=== PATIENT | female | born 1955 | race Caucasian/White ===

== ENCOUNTER 2022-10-27 19:12 | Emergency (ER) | payer BC, SELFPAY ==
[2022-10-27 19:12] VITALS: BP 118/92; PULSE 67; RESP 22; TEMP 36.4; O2SAT 100
[2022-10-27] MEDS: fentaNYL 100 MCG/2 ML VIAL 50 MCG IVP (19:43)
--- NOTE | 2022-10-27 19:45 | DI.RAD_ITS ---
Exam(s) XR SHOULDER LT COMPLETE 2+V EXAM: XR SHOULDER LT COMPLETE 2+V CLINICAL HISTORY: Trauma, proximal shoulder/humerus pain. TECHNIQUE: 2D digital imaging was performed. Three views. COMPARISON: No exams were available for comparison FINDINGS: BONES: There is a fracture at the surgical neck of the humerus tissue shows marked displacement as we ll as angulation. There are a few small comminuted fragments. No bony destructive lesion is seen. JOINTS: No dislocation present. SOFT TISSUE: Swelling around proximal humerus. IMPRESSION: Comminuted displaced fracture of the proximal humerus. DATA REPOSITORY: RADIATION DOSE DELIVERED:
--- NOTE | 2022-10-27 20:42 | DI.VRAD_ITS ---
PROCEDURE INFORMATION: Exam: XR Left Shoulder Exam date and time: 10/27/2022 8:05 PM Age: 67 years old Clinical indication: Injury or trauma; Fall; Other: Trauma, proximal shoulder/humerus pain TECHNIQUE: Imaging protocol: Radiologic exam of the left shoulder. Views: 2 or more views. COMPARISON: No relevant prior studies available. FINDINGS: Bones/joints: Mildly comminuted and impacted fracture of the proximal humerus/humeral head. There is no dislocation of the glenohumeral joint Soft tissues: Mild swelling noted IMPRESSION: Proximal left humeral/humeral head fracture as noted Dictated and Authenticated by: Sg Demarco MD. Ordering:MITESH Painter MD
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
[2022-10-27 22:01] VITALS: BP 112/65; PULSE 53; RESP 18; O2SAT 96
== END 2022-10-27 22:01 | disposition home or self-care (01) ==
PROVIDERS: Emergency Provider Nurse Practitioner Family
DX: S42.202A Unspecified fracture of upper end of left humerus, initial encounter for closed fracture (principal); V19.3XXA Pedal cyclist (driver) (passenger) injured in unspecified nontraffic accident, initial encounter
CPT/HCPCS: 29240; 96374; 99284; 73030; J3010

== ENCOUNTER 2022-11-04 09:23 | Day surgery (SDC) | payer BC, SELFPAY ==
[2022-11-04] VITALS (14 sets, daily range): BP systolic 104–150; BP diastolic 62–92; PULSE 62–79; RESP 12–20; TEMP 36–37; O2SAT 97–100; BMI 23.0
--- NOTE | 2022-11-04 07:15 | W.PM.DSUDISC ---
Date of service: 11/04/22 Time of Service: 16:00 Discharge Plan Disposition Patient Disposition: Home Condition: Stable Discharge Details Attending Provider: Rodney Medina Primary Care Provider: None,None Home Meds and New Rx's Prescriptions: New aspirin 81 mg tablet,delayed release (DR/EC) 81 mg PO DAILY 7 Days Qty: 7 0RF naproxen 250 mg tablet 250 - 500 mg PO BID PRNQty: 40 0RF Rx Instructions: take with a meal oxycodone 5 mg tablet 5 - 10 mg PO Q4H MDD 30 mg PRN (Reason: moderate to severe pain) Qty: 18 0RF Continued acetaminophen [Tylenol] 325 mg capsule 325 mg PO ONCE PRN Discontinued ibuprofen 200 mg Tablet 600 mg PO DIRECTED PRN Discharge Instructions Additional Instructions: Surgery: Left proximal humerus ORIF Activity: For 3 weeks, you should keep your arm at your side in a relatively neutral position. Do not try to lift or raise your arm using your own muscles. You should use the sling whenever you are out of the house. You may have to adjust it for comfort. At home it is best to remove the sling and rest the arm on a pillow at your side or support the operative side with your other hand. You may allow the arm to dangle at your side. Perform daily range of motion about the elbow, wrist, hand, and fingers to increase circulation and prevent stiffness. Start gentle pendulums and passive range of motion after 3 weeks postop. A physical therapy prescription will be sent to start in about 3-4 weeks. Prescriptions: Aspirin 81 mg take 1 daily to prevent a blood clot for 7 days Naproxen 250 mg take 1-2 every 12 hours with a meal as needed for moderate pain Oxycodone 5 mg take 1-2 every 4-6 hours as needed for severe pain You may use [id number] Tylenol (acetaminophen) as needed for mild pain. These pain medications may be taken all at once or in different combinations as needed. Also, recommend Colace (docusate) as a stool softener as surgery and pain medicine cause constipation. You may try [id number] diphenhydramine (Benadryl) 25-50 mg nightly as a sleep aid Dressings: Keep bandage clean, dry, and, intact. No shower please. Follow-up: 10-14 days with an orthopedic physician research assistant professor. Follow-up [address] Medina. You may take off the leg compression stockings this evening at home. You may also leave them on a few days longer if you have a history of leg swelling or edema. Let us know right away if you develop any redness, drainage, fevers, chest pain, or trouble breathing. Do not drink alcohol or drive for at least 24 hours after anesthesia. Please call the office during business hours with any questions or concerns. Discharge Orders Discharge Orders: Discharge Order (Routine); Ordered 11/04/22 Ordered By: Rodney Medina DS: Diagnosis Discharge Diagnosis (1) Closed fracture of left proximal humerus: Status: Acute
--- NOTE | 2022-11-04 07:17 | ROE_ITS ---
Date of service: 11/04/22 Time of Service: 14:30 Operative Note Operative Note DATE OF PROCEDURE: 11/04/22 PRE-OP DIAGNOSIS: Displaced left proximal humerus fracture POST-OP DIAGNOSIS: same PROCEDURE: Left proximal humerus ORIF, CPT #36251 SURGEON: Rodney Medina COMPLIANCE VICE PRESIDENT: Lou Anderson ANESTHESIA TYPE: Local By Surgeon and General LMA/ETT Refer to Anesthesia Record ESTIMATED BLOOD LOSS: 150 COMPLICATIONS: None Patient was transported to: PACU Patient's condition: stable Implants: Arthrex proximal humerus plate with 4.0 proximal locking screws, 3.5 mm cortex and locking screws distally. Indications: Please see complete medical record for details. Procedure Description: In the operating room, general anesthesia was induced. The patient was positioned semi-recumbent on the beach chair all bony prominences were well- padded. Preoperative antibiotics were administered. The left shoulder was prepped and draped in the usual sterile fashion. The correct patient, procedure, and side of the procedure were all verified prior to incision. The deltopectoral interval was preinjected with 0.25% bupivacaine containing epinephrine. The cephalic vein was mobilized laterally, deeply hemorrhagic bursa exposed and debrided, the biceps identified in the usual location above the pectoralis major tendon and between the lesser and greater tuberosities. Suture tape horizontal stitches were used to secure the subscapularis about the lesser tuberosity, supraspinatus about the greater tuberosity, and infraspinatus more posteriorly. Arm positioning, retractors, and appropriate traction and mobilization on the humeral head through the rotator cuff sutures achieved good reduction. The humeral head was provisionally pinned taking care to ensure no varus to the glenoid centrally with a 2.0 mm K wire. The shaft reduction to the head was then slightly improved with arm rotation and smooth Hohmann elevator. An Arthrex alpha plate was then attempted, fit about the greater tuberosity, positioned appropriately just lateral to the bicipital groove. This plate had a novel curve that avoided the biceps insertion distally. The plate was positioned as best possible given its curvature and patient anatomy. It was secured with a K wire proximally and a cortex screw distally in the oblong hole. The plate was then slid distally to improve calcar fixation. The cortex screw was tightened. Everything looked appropriate. The proximal locking screw holes were then predrilled taking care to only drill the lateral cortex, never penetrate the subchondral bone or into the joint, and measure depth with the blunt depth obturator and subtract 4-6 mm from each screw length. The distal remaining screw holes were then filled with appropriately length bicortical locking screws. The construct was stable. The shoulder was then taken through range of motion. Unfortunately, the curvature of this plate and how it sat on the proximal cortex had directed the majority of the proximal screws into the posterior aspect of the humeral head. Although fixation was secure, the spread was not appropriate as it did not incorporate enough bone centrally or anteriorly. All the screws and this plate were removed. This plate did not want to sit along the lateral cortex and a better trajectory for proximal fixation. Care was taken to maintain reduction. Instead, a more standard proximal locking plate was applied, which sat in the more usual location after slightly elevating the deltoid insertion. The oblong hole was provisionally secured with a bicortical cortex screw in the proximal shaft. Screw trajectory appeared more appropriate into the central humeral head. Proximally, the plate appeared about a centimeter distal to the greater tuberosity and supraspinatus. Again it sat just lateral to the bicipital groove. The calcar screw trajectory was in the inferior one third of the humeral head and neck although the screw placement was slightly more proximal than ideal. The plate was adjusted slightly more distally using the oblong hole screw loosened and then retightened. In this position the plate was still somewhat proximal, could only be moved more distal with more significant soft tissue and deltoid elevation and the curvature would have caused it to sit off the bone proximally. It was left in this position as it seemed the best compromise for fixation, reduction, and patient anatomy. Similar to before, locking screws were placed. Only lateral cortex was drilled and the depth obturator was used and subtracted 4-6 mm for each screw length to avoid prominence or penetration. The remaining 2 distal proximal shaft holes were then filled with bicortical locking screws. AP and orthogonal x-rays showed excellent fracture reduction and acceptable hardware placement. Multiple orthogonal views were used to confirm no screw penetration into the joint. The tuberosities and rotator cuff were then secured to the plate bypassing each end of the horizontal mattress sutures through their corresponding locations in the anterior, superior, and posterior plate. Sliding knots used to secure tension. The construct was quite stable through range of motion. The biceps tendon was appropriately located in the bicipital groove, fractures about the lesser, groove, and greater tuberosities reduced without any sharp edges on the biceps tendon. The tendon itself did not have any overt damage so tenodesis was omitted. The wound was copiously irrigated with Betadine and then normal saline. 1 g of vancomycin powder was distributed throughout the deep and superficial layers. Appropriate hemostasis was achieved. 2-0 Monocryl was used to reapproximate the deltopectoral interval burying the cephalic vein. Subcutaneous tissue closed with 2-0 Monocryl interrupted. Skin closed with 3-0 Monocryl buried running. Skin glue applied over the incision followed by a Mepilex Band-Aid. The patient awoke from anesthesia without complication and was transferred to the recovery room in a stable condition.
--- NOTE | 2022-11-04 08:33 | ANES.PREOP_ITS ---
General Info Date of Service Date Performed: 11/04/22 Height: 5 ft 4 in Weight: 60.781 kg Body Mass Index (BMI): 23.0 Surgical Procedure: Operation Date: 11/04/22 11:55 Proposed Procedure Side Surgeon p Proximal Humerus ORIF, Possible Biceps Tenodesis Left Rodney Medina MD Meds Allergies and Home Medications Allergies Allergy/AdvReac Type Severity Reaction Status Date / Time No Known Allergies Allergy Unverified 11/03/22 11:03 Home Medication Medication Instructions Recorded acetaminophen 325 mg capsule 325 mg PO ONCE PRN 11/02/22 (Tylenol) aspirin 81 mg tablet,delayed 81 mg PO DAILY prevent blood clot 11/04/22 release 7 days #7 tabs naproxen 250 mg tablet 250 - 500 mg PO BID PRN #40 tabs 11/04/22 oxycodone 5 mg tablet 5 - 10 mg PO Q4H PRN moderate to 11/04/22 severe pain #18 tabs Current Visit Medications: Current Medications Generic Name Dose Route Start Last Admin Trade Name Freq PRN Reason Stop Dose Admin Ringer's Solution 1,000 mls @ 30 mls/hr 11/04/22 06:00 IV 12/03/22 23:59 INFUSION ANDRE Cefazolin Sodium/Dextrose 2 gm in 50 mls @ 100 mls/hr 11/04/22 06:00 Ancef Duplex IVPB 11/04/22 16:00 PREOP ANDRE Tranexamic Acid 1,000 mg/ 60 mls @ 360 mls/hr 11/04/22 06:00 Sodium Chloride IVPB 11/14/22 16:00 PREOP ANDRE Cefazolin Sodium/Dextrose 1 gm in 50 mls @ 100 mls/hr 11/04/22 15:30 Ancef Duplex IVPB 11/04/22 15:59 ONCE ONE IV Miscellaneous Supplies 1 each 11/04/22 06:00 Iv Access IV 12/03/22 23:59 DIRECTED ANDRE Lactobacillus Acidophilus/Casei 1 cap 11/04/22 12:30 L. Acidophilus, Casei, Rhamnosus Cap PO 12/04/22 16:29 DAILY ANDRE Oxycodone HCl 0 mg 11/04/22 07:14 Oxycodone 5 Mg Tab PO 12/04/22 07:13 Q3H PRN PRN Pain Sodium Chloride 0 ml 11/04/22 06:00 Normal Saline Flush 10 Ml Syr IV 12/03/22 23:59 PRN PRN Sodium Chloride 0 ml 11/04/22 06:00 Normal Saline 10 Ml Vial IJ 12/03/22 23:59 DIRECTED PRN Sterile Water 0 ml 11/04/22 06:00 Water,Injection,Sterile 10 Ml Vial IJ 12/03/22 23:59 DIRECTED PRN PFSH Active Problems Active Problems: Problem Status Onset Code Closed fracture of left proximal humerus 10/27/22 S42.202A Medical History Medical History Exercise-induced asthma Surgical History Surgical History History of tubal ligation Tobacco Smoking/Tobacco Use Status: Former Tobacco Use Alcohol Alcohol Intake: current Alcohol intake frequency: a few times a week Substance Use Substance use: Never Substance use type: does not use Vital Signs and Lab Results Vital Signs Most Recent Vital Signs in EMR: Temp Pulse Resp BP Pulse Ox 36.2 C L 67 16 120/77 99 11/04/22 09:44 11/04/22 09:44 11/04/22 09:44 11/04/22 09:44 11/04/22 09:44 Lab Results Blood Type / Crossmatch: No Data to Display Complete Blood Count: No Data to Display Complete Metabolic Panel: No Data to Display Liver Function Panel: No Data to Display Coagulation Panel: No Data to Display Cardiac Panel: No Data to Display Arterial Blood Gas: No Data to Display Venous Blood Gas: No Data to Display Pancreas Panel: No Data to Display Thyroid Panel: No Data to Display Infectious Disease: No Data to Display Blood Cultures: No Data to Display Toxicology Panel: 2 No Data to Display Anesthesia Assessment and Plan Anesthesia History Personal History: No History of Anesthesia Complications Family History: No Family History of Anesthesia Complications Exercise Tolerance Exercise Tolerance: Metabolic Equivalents>4 Cardiac & Pulmonary Exam Cardiac Exam: Normal S1/S2 Heart Sounds Pulmonary Exam: Clear Bilateral Breath Sounds Implantable Cardiac Device Does patient have a Pacemaker or an ICD?: No Airway Exam Known Difficult Airway: No Mallampati Class: 2 Mouth Opening: Normal (> 3cm) Thyromental Distance: Greater than 3 cm Neck Range of Motion: Full ROM Neck Circumference: Normal Teeth Condition: Normal Dentition ASA Classification ASA Score: ASA 2 Emergency Case?: No NPO Status NPO Status: NPO Clears >2 hours, Solids >8 hours Anesthesia Plan Resuscitation Status: Full Code Anesthesia Technique: General Anesthesia Airway Planned: Endotracheal Tube Pain Management: Surgeon and patient request nerve block Monitors Used: Standard Monitors Preoperative Comments:: 67 yo female for ORIF humeral head. Sig PMHx: exercise induced asthma (has been using her proair more often), former smoker, occ EtOH. Does have a very slight bit of numbness (no motor involvment) in the ulnar an r adial nerve areas, discussed risks with her and with Carol. Given the delayed onset of this numbness, it is thought to be related to swelling and sling use. Plan: DAWNA KING.
[2022-11-04] MEDS: Lactated Ringers 1,000 ML 30 ML IV (10:32)
[2022-11-04] MEDS: ceFAZolin 1 GM/50 ML BAG IVPB (13:40)
--- NOTE | 2022-11-04 14:10 | ANES.NERVE_ITS ---
Nerve Block Single Injection Procedure Date and Time Date Performed: 11/04/22 Procedure Start: 13:18 Location Where Procedure Performed Procedure Location: Day Surgery Unit Reason Performed: Postoperative Analgesia Requesting Provider: Rodney Medina Timeout Performed Timeout Performed: Yes Monitoring Used ECG, Blood Pressure and SpO2 Sterility Sterility: Hand Hygiene, Surgical Cap, Surgical Mask and Chlorhexidine Sedation Given During Procedure Sedation Given (Indicate Dose Given): Versed IV Dose:: 2 mg and Precedex IV Dose:: 8 mcg Patient Mental Status Patient Mental Status: Sedate with meaningful communication Nerve Block 1st Nerve Block: Laterality: Left Block Type: Interscalene Ultrasound Image Saved?: Yes Needle / Catheter Used: 100mm SonoPlex II Local Anesthetic Bolus (Indicate Dose Given): Lidocaine used for local infiltration of skin, Bupivacaine 0.5% Dose:: 10 mL and Exparel Dose:: 10 mL Additives (Indicate Dose Given): None Ultrasound: Sterile probe cover and gel used Nerve Stimulator: Supplement to Ultrasound use and No twitch or parast hesia noted < 0.5 mA Paresthesia: None Procedure Tolerated: No Complications Procedure Outcome: Successful Procedure Comment: first attempt with deltoid twitching well outside of groove, on withdrawal and redirection same thing. New site located, lidocaine placed, and needle resited. On advancement through the middle scalene and still away from the plexus still with deltoid twitch. Needle withdrawn redirected more superficial and local placed above groove. Performed By: Herve De La Fuente
--- NOTE | 2022-11-04 17:15 | DI.RAD_ITS ---
Exam(s) XR HUMERUS LT EXAM: XR HUMERUS LT CLINICAL HISTORY: FX PROXIMAL LEFT HUMERUS. TECHNIQUE: 2D and realtime digital imaging was performed. COMPARISON: CR,XR XR SHOULDER LT COMPLETE 2+V from 10/27/2022 FINDINGS: Hard copy images show placement of a fixation plate along the proximal humerus for fracture fixation. The alignment appears satisfactory. Please see procedure note for details. Fluoro time: 1.19 minutes RADIATION DOSE DELIVERED: brit Vega=4.72 mGy
--- NOTE | 2022-11-04 19:03 | W.ANESPOSTOP ---
Postoperative Evaluation Date, Time and Location Date Performed: 11/04/22 Time Performed: 19:03 Patient Location: PACU Vital Signs Most Recent Imported Vital Signs: Most Recent Vital Signs Temp Pulse Resp BP Pulse Ox 36.5 C 73 12 132/77 99 11/04/22 18:48 11/04/22 18:48 11/04/22 18:48 11/04/22 18:48 11/04/22 18:48 Pain Score Most Recent Pain Score: Most Recent Pain Score Pain Level 0 11/04/22 18:48 Assessment Mental Status: Awake (Alert & Oriented to Patient Baseline) Airway and Respiratory Function: Patent airway with normal (patient baseline) respiratory exam Cardiovascular Function: Hemodynamically Stable Hydration Status: Adequately Hydrated Nausea & Vomiting: No Nausea or Vomiting Pain: Pain is tolerable per patient (left elbow, 08/16. Refused meds.) Peripheral Nerve Block: Regional nerve block not resolved at time of post operative discharge
[2022-11-04] MEDS: oxyCODONE 5 MG TAB PO (19:19)
== END 2022-11-04 21:06 | disposition home or self-care (01) ==
LOC: SUR 09:24 → MS 19:09
PROVIDERS: Visit Provider Student in an Organized Health Care Education/Training Program
PROC: (CPT 23615; principal; 2022-11-04 11:45)
DX: S42.202A Unspecified fracture of upper end of left humerus, initial encounter for closed fracture (principal); X58.XXXA Exposure to other specified factors, initial encounter
CPT/HCPCS: 23615; 76942; 73060; J0131; J0690; J1100; J1885; J2001; J2250; J2371; J2405; J2704

== ENCOUNTER 2022-11-17 13:16 | Outpatient (CLI) | payer MEDICARE, SELFPAY ==
--- NOTE | 2022-11-17 13:42 | DI.RAD_ITS ---
Exam(s) XR SHOULDER LT COMPLETE 2+V EXAM: XR SHOULDER LT COMPLETE 2+V CLINICAL HISTORY: S/P ORIF L PRX HUMERUS FX. TECHNIQUE: 2D digital imaging was performed. COMPARISON: CR,XR XR SHOULDER LT COMPLETE 2+V from 10/27/2022 XA XR HUMERUS LT from 11/04/2022 FINDINGS: Two views: Again noted is the recently placed lateral fixation plate across the humeral head-neck fracture regio n and this appears stable when compared to intraoperative images of 11/04/2022. No new fractures. N o hardware loosening evident. No hardware fracture. No evidence of osteomyelitis. IMPRESSION: Satisfactory stable appearance. DATA REPOSITORY: RADIATION DOSE DELIVERED:
== END 2022-11-17 13:17 | disposition home or self-care (01) ==
LOC: DIORS 13:16
PROVIDERS: Visit Provider Physician Assistant
DX: S42.202D Unspecified fracture of upper end of left humerus, subsequent encounter for fracture with routine healing; X58.XXXD Exposure to other specified factors, subsequent encounter
CPT/HCPCS: 73030

== ENCOUNTER 2022-12-15 14:27 | Outpatient (CLI) | payer MEDICARE, SELFPAY ==
--- NOTE | 2022-12-15 14:15 | DI.RAD_ITS ---
Exam(s) XR SHOULDER LT COMPLETE 2+V EXAM: XR SHOULDER LT COMPLETE 2+V INDICATION: F/U FRACTURE. COMPARISON: CR XR SHOULDER LT COMPLETE 2+V from 11/17/2022 TECHNIQUE: 2D digital imaging was performed. Two views. FINDINGS: There has been no change in the fracture or hardware alignment in the proximal humerus. DATA REPOSITORY: RADIATION DOSE DELIVERED:
== END 2022-12-15 14:28 | disposition home or self-care (01) ==
LOC: DIORS 14:28
PROVIDERS: PCP Physician Assistant Medical; Visit Provider Student in an Organized Health Care Education/Training Program
DX: Z47.89 Encounter for other orthopedic aftercare (principal); M25.612 Stiffness of left shoulder, not elsewhere classified
CPT/HCPCS: 73030

== ENCOUNTER 2023-02-01 14:51 | Outpatient (CLI) | payer MEDICARE, SELFPAY ==
--- NOTE | 2023-02-01 13:15 | DI.RAD_ITS ---
Exam(s) XR SHOULDER LT COMPLETE 2+V EXAM: XR SHOULDER LT COMPLETE 2+V CLINICAL HISTORY: F/U FRACTURE. TECHNIQUE: 2D digital imaging was performed of the left shoulder. Two images were obtained. Y and Grashey views were obtained. COMPARISON: CR,XR XR SHOULDER LT COMPLETE 2+V from 10/27/2022 CR XR SHOULDER LT COMPLETE 2+V from 11/17/2022 CR XR SHOULDER LT COMPLETE 2+V from 12/15/2022 FINDINGS: BONES: There is again seen a sideplate and screws transfixing the proximal humeral fracture. The fra cture line is still visualized in the surgical neck. No new fractures identified. No bony destructi ve lesion is seen. JOINTS: No dislocation present. SOFT TISSUE: Normal. IMPRESSION: Stable healing proximal humeral fracture and orthopedic hardware. DATA REPOSITORY: RADIATION DOSE DELIVERED:
== END 2023-02-01 14:52 | disposition home or self-care (01) ==
LOC: DIORS 14:52
PROVIDERS: PCP Physician Assistant Medical; Referring Provider Physician Assistant Medical; Visit Provider Student in an Organized Health Care Education/Training Program
DX: S42.293D Other displaced fracture of upper end of unspecified humerus, subsequent encounter for fracture with routine healing (principal); X58.XXXD Exposure to other specified factors, subsequent encounter; M25.612 Stiffness of left shoulder, not elsewhere classified
CPT/HCPCS: 99213; 73030

== ENCOUNTER 2023-04-26 15:09 | Outpatient (CLI) | payer MEDICARE, SELFPAY ==
--- NOTE | 2023-04-26 13:00 | DI.RAD_ITS ---
Exam(s) XR SHOULDER LT COMPLETE 2+V EXAM: XR SHOULDER LT COMPLETE 2+V CLINICAL HISTORY: evaluation of left shoulder. TECHNIQUE: 2D digital imaging was performed of the left shoulder. Two images were obtained. AP and Grashey views were obtained. COMPARISON: CR,XR XR SHOULDER LT COMPLETE 2+V from 10/27/2022 CR XR SHOULDER LT COMPLETE 2+V from 11/17/2022 CR XR SHOULDER LT COMPLETE 2+V from 02/01/2023 FINDINGS: BONES: There is an ORIF of the proximal left humeral fracture. The fracture lines are much less well visualized consistent with interval healing. No new fracture is seen. No bony destructive lesion i s seen. JOINTS: No dislocation present. The glenohumeral joint is well maintained. There are mild degenerati ve changes at the acromioclavicular joint. SOFT TISSUE: Normal. IMPRESSION: The proximal left humeral fracture appears well healed. DATA REPOSITORY: RADIATION DOSE DELIVERED:
== END 2023-04-26 15:10 | disposition home or self-care (01) ==
LOC: DIORS 15:09
PROVIDERS: PCP Physician Assistant Medical; Visit Provider Student in an Organized Health Care Education/Training Program
DX: M25.612 Stiffness of left shoulder, not elsewhere classified (principal); S42.202D Unspecified fracture of upper end of left humerus, subsequent encounter for fracture with routine healing; X58.XXXD Exposure to other specified factors, subsequent encounter
CPT/HCPCS: 99213; 73030

== ENCOUNTER 2023-11-08 13:31 | Outpatient (CLI) | payer MEDICARE, SELFPAY ==
--- NOTE | 2023-11-08 13:33 | DI.RAD_ITS ---
Exam(s) XR SHOULDER LT COMPLETE 2+V EXAM: XR SHOULDER LT COMPLETE 2+V CLINICAL HISTORY: F/U ORIF LEFT SHOULDER. TECHNIQUE: 2D digital imaging was performed. Three images were obtained. Grashey, Y and axillary vi ews were obtained. COMPARISON: CR XR SHOULDER LT COMPLETE 2+V from 04/26/2023 FINDINGS: BONES: There are stable post operative changes present. The fracture appears healed. Orthopedic freedom dware is intact. No new fracture or dislocation. JOINTS: The glenohumeral joint is well maintained. There are mild degenerative changes seen at the a cromioclavicular joint. SOFT TISSUE: Normal. IMPRESSION: Mild degenerative changes seen at the acromioclavicular joint. No acute abnormality. DATA REPOSITORY: RADIATION DOSE DELIVERED:
== END 2023-11-08 13:32 | disposition home or self-care (01) ==
LOC: DIORS 13:31
PROVIDERS: PCP Physician Assistant Medical; Referring Provider Physician Assistant Medical; Visit Provider Student in an Organized Health Care Education/Training Program
DX: S42.202D Unspecified fracture of upper end of left humerus, subsequent encounter for fracture with routine healing (principal); X58.XXXD Exposure to other specified factors, subsequent encounter; M25.612 Stiffness of left shoulder, not elsewhere classified
CPT/HCPCS: 99213; 73030